=== PATIENT | female | born 1970 | race American Indian/Alaskan Native ===

== ENCOUNTER 2016-12-19 16:11 | Emergency (ER) | payer MEDICAID, OTHER ==
[2016-12-19 17:15] LABS: Basophils % (Auto) 1.1 % (0.0-1.8); Eosinophils % (Auto) 0.7 % (0.0-4.3); Hematocrit 45.1 % (30.3-42.9); Hemoglobin 14.2 gm/dl (10.1-14.3); Mean Corpuscular HGB Conc 32 % (30-34); Mean Corpuscular Hemoglobin 28 pg (28-32); Mean Corpuscular Volume 89 fl (79-97); Platelet Count 180 K/mm3 (140-440); Red Blood Count 5.06 M/mm3 (3.65-5.03); Red Cell Distribution Width 16.1 % (13.2-15.2); White Blood Count 4.2 K/mm3 (4.5-11.0)
[2016-12-19 17:28] LABS: Anion Gap 14 mmol/L; BUN/Creatinine Ratio 14.28; Blood Urea Nitrogen 10 mg/dL (7-17); Calcium 8.7 mg/dL (8.4-10.2); Carbon Dioxide 28 mmol/L (22-30); Chloride 101.7 mmol/L (98-107); Glucose 104 mg/dL (65-100); Potassium 3.7 mmol/L (3.6-5.0); Sodium 140 mmol/L (137-145)
[2016-12-19 19:07] LABS: Bacteria,Urine 1+ /HPF (Negative); Bilirubin,Urine NEG (Negative); Blood,Urine NEG (Negative); Ketones,Urine NEG (Negative); Leukocyte Esterase,Urine MOD (Negative); Mucus,Urine 1+ /HPF; Nitrite,Urine NEG (Negative); Protein,Urine <15 mg/dL mg/dL (Negative)
[2016-12-19] MEDS ORDERED: DILAUDID IV ONE (21:37)
[2016-12-19] MEDS ORDERED: NACL 0.9% 1000 ML 1,000 ML IV ONE (21:37)
--- NOTE | 2016-12-19 21:55 | Emergency Department Report ---
HPI - General Chief Complaint: Abdominal Pain Time Seen by Provider: 12/19/16 21:15 - HPI HPI: This is a 46-year-old Afro-[place] female presents to the emergency department with a 2 week history of right groin pain that she says is an exacerbation of her lupus. She says that this is normally where she gets lupus pains. She denies any pain or abnormalities to the genitalia. She denies any dysuria, vaginal bleeding or discharge. She went one week ago to self full the emergency department and was prescribed Percocet which she says she has been taking but has not helped with her symptoms. She also has a history of DVT and PE and is on warfarin which she says she takes compliantly. Her primary care physician is Dr. Letty Haddad. No recent travel or sick contacts at home. ED Past Medical Hx - Past Medical History Hx Diabetes: Yes (mother) Hx Deep Vein Thrombosis: Yes Hx Pulmonary Embolism: Yes Hx GERD: No Hx Headaches / Migraines: No Hx HIV: No Additional medical history: LUPUS. OBESITY - Surgical History Hx Open Heart Surgery: Yes (1998) Additional Surgical History: SURG FOR PE - Social History Smoking Status: Never Smoker Substance Use Type: Prescribed - Medications Home Medications: Home Medications Medication Instructions Recorded Confirmed Last Taken Type Warfarin [Coumadin] 5 mg PO QDAY #10 tablet 03/05/15 Unknown Rx Diphenhydramine HCl [Benadryl 50 mg PO Q6H #24 tablet 12/02/15 Unknown Rx Allergy TAB] HYDROcodone/APAP 5-325 [[place] 1 - 2 each PO Q6HR PRN #14 tablet 12/02/15 Unknown Rx 5/325] Prednisone [predniSONE 10 mg 10 mg PO .TAPER #1 tab.ds.pk 12/02/15 Unknown Rx (6-Day Pack, 21 Tabs)] traMADol [Ultram 50 MG tab] 50 mg PO Q6HR PRN #12 tablet 12/20/16 Unknown Rx ED Review of Systems ROS: Stated complaint: RT GROIN PAIN/LUPUS Other details as noted in HPI Comment: All other systems reviewed and negative Constitutional: denies: chills, fever Eyes: denies: eye pain, eye discharge, vision change ENT: denies: ear pain, throat pain Respiratory: denies: cough, shortness of breath, wheezing Cardiovascular: denies: chest pain, palpitations Gastrointestinal: denies: abdominal pain, nausea Genitourinary: denies: dysuria, hematuria Musculoskeletal: arthralgia, myalgia. denies: back pain Skin: denies: rash, lesions Neurological: denies: headache, weakness, paresthesias Physical Exam - Physical Exam Vital Signs: Vital Signs 12/19/16 16:47 Temperature 97.7 F Pulse Rate 108 H Respiratory 19 Rate Blood Pressure 148/101 O2 Sat by Pulse 99 Oximetry Physical Exam: GENERAL: The patient is well-developed well-nourished. HEENT: Normocephalic. Atraumatic. Extraocular motions are intact. Patient has moist mucous membranes. Pupils equal reactive to light bilaterally. NECK: Supple. Trachea is midline. CHEST/LUNGS: Clear to auscultation. There is no respiratory distress noted. HEART/CARDIOVASCULAR: Regular. There is no tachycardia. There is no gallop rub or murmur. ABDOMEN: Abdomen is soft, nontender. Patient has normal bowel sounds. There is no abdominal distention. SKIN: Skin is warm and dry. NEURO: The patient is awake, alert, and oriented. The patient is cooperative. The patient has no focal neurologic deficits. The patient has normal speech. MUSCULOSKELETAL: There is some reproducible tenderness palpation to the medial right upper thigh and towards the inguinal region. No palpable hernia. There is no limitation range of motion. There is no evidence of acute injury. ED Course Vital Signs 12/19/16 16:47 Temperature 97.7 F Pulse Rate 108 H Respiratory 19 Rate Blood Pressure 148/101 O2 Sat by Pulse 99 Oximetry ED Medical Decision Making - Lab Data Result diagrams: 12/19/16 16:56 12/19/16 16:56 - Medical Decision Making 46-year-old female presents with what she says is a lupus exacerbation with pain to the right upper groin/thigh. There is been no trauma. Labs are unremarkable. Her INR is therapeutic and therefore, along with a lack of swelling or discoloration, there is no concern for DVT. She was given multiple doses of pain medication and upon reevaluation she is improved and resting comfortably. Patient was able to get up and ambulate upon discharge and did not appear unstable at doing so. She will follow-up with her primary care doctor in the next few days and return to the ER with any worsening of her symptoms or any acute distress. - Differential Diagnosis Lupus, fibromyalgia, fracture, contusion, sprain Critical Care Time: No Critical care attestation.: If time is entered above; I have spent that time in minutes in the direct care of this critically ill patient, excluding procedure time. ED Disposition Clinical Impression: Right groin pain, Exacerbation of systemic lupus Joint pain Qualifiers: Joint pain location: unspecified Qualified Code(s): M25.50 - Pain in unspecified joint Disposition: DC- TO HOME OR SELFCARE Is pt being admited?: No Condition: Stable Instructions: Arthralgia (ED) Additional Instructions: Please follow-up with your primary care doctor in the next few days. Return to the emergency department with any worsening of your symptoms or any acute distress. You've been prescribed a medication that is sedating. Therefore this medication cannot be mixed with alcohol, or taken prior to driving, working, or being responsible for children. Prescriptions: traMADol [Ultram 50 MG tab] 50 mg PO Q6HR PRN #12 tablet PRN Reason: Pain Referrals: PRIMARY CARE,MD [Primary Care Provider] - [facility] Forms: Accompanied Note, Work/School Release Form(ED) Time of Disposition: 02:01
[2016-12-19 22:23] LABS: INR 2.62 (0.87-1.13)
[2016-12-19 22:24] LABS: Partial Thromboplastin Time 45.7 Sec. (24.2-36.6)
[2016-12-19] MEDS ORDERED: VALIUM IV ONE (23:15)
[2016-12-20 01:31] VITALS: BP 158/95
[2016-12-20] MEDS ORDERED: DILAUDID IV ONE (01:34)
== END 2016-12-20 02:40 | disposition home or self-care (01) ==
LOC: ED 16:11
DX: R10.30 Lower abdominal pain, unspecified (principal); M32.9 Systemic lupus erythematosus, unspecified; E11.9 Type 2 diabetes mellitus without complications; I82.409 Acute embolism and thrombosis of unspecified deep veins of unspecified lower extremity; E66.9 Obesity, unspecified; I26.99 Other pulmonary embolism without acute cor pulmonale; Z79.01 Long term (current) use of anticoagulants; Z88.8 Allergy status to other drugs, medicaments and biological substances; Z91.048 Other nonmedicinal substance allergy status
CPT/HCPCS: 36415; 80048; 81001; 84703; 85025; 85610; 85730; 96361; 96374; 96375; 96376; 99283; J1170; J3360; J7030

== ENCOUNTER 2016-12-23 14:10 | Emergency (ER) | payer OTHER ==
--- NOTE | 2016-12-23 15:28 | Emergency Department Report ---
Chief Complaint: Pain General Stated Complaint: GROIN PAIN,LUPUS Time Seen by Provider: 12/23/16 15:24 - HPI History of Present Illness: PT c/o R groin pain. PT states this is from her Lupus. PT states she was seen in ED 2 days ago and given Tramadol. PT has not followed up with PCP - ROS Review of Systems: + leg pain + decreased ROM due to leg pain - Exam Physical Exam: morbidly obese female pt evaluated while sitting in wheelchair due to her leg pain MSE screening note: Focused history and physical exam performed. Due to findings the following was ordered: labs ED Disposition for MSE Condition: Stable
[2016-12-23 16:22] LABS: Basophils % (Auto) 1.4 % (0.0-1.8); Eosinophils % (Auto) 1.1 % (0.0-4.3); Hematocrit 44.1 % (30.3-42.9); Hemoglobin 14.5 gm/dl (10.1-14.3); Mean Corpuscular HGB Conc 33 % (30-34); Mean Corpuscular Hemoglobin 30 pg (28-32); Mean Corpuscular Volume 90 fl (79-97); Platelet Count 182 K/mm3 (140-440); Red Blood Count 4.93 M/mm3 (3.65-5.03); Red Cell Distribution Width 15.7 % (13.2-15.2); White Blood Count 4.2 K/mm3 (4.5-11.0)
[2016-12-23 16:32] LABS: INR 1.95 (0.87-1.13)
[2016-12-23 16:33] LABS: Partial Thromboplastin Time 46.5 Sec. (24.2-36.6)
[2016-12-23 16:46] LABS: Alanine Aminotransferase 17 units/L (7-56); Albumin 3.8 g/dL (3.9-5); Albumin/Globulin Ratio 0.9 %; Alkaline Phosphatase 72 units/L (35-129); Anion Gap 15 mmol/L; BUN/Creatinine Ratio 18.57; Blood Urea Nitrogen 13 mg/dL (7-17); Calcium 8.9 mg/dL (8.4-10.2); Carbon Dioxide 26 mmol/L (22-30); Chloride 96.4 mmol/L (98-107); Glucose 85 mg/dL (65-100); Potassium 3.9 mmol/L (3.6-5.0); Sodium 133 mmol/L (137-145)
[2016-12-24] MEDS ORDERED: DILAUDID IV ONE ×2 (02:03→03:36)
--- NOTE | 2016-12-24 02:10 | Emergency Department Report ---
HPI - General Chief Complaint: Pain General Time Seen by Provider: 12/23/16 15:24 - HPI HPI: This is a 46-year-old Afro-[place] female presents to the emergency department with complaint of pain to the right groin and inside of the right thigh. The patient was seen here on 12/19/16 for the same complaints. She has a history of lupus and says that this is where she gets her lupus pain. Patient does have a history of DVT but is on Coumadin and says she has been compliant for her medication. Her primary care physician is Dr. Letty Haddad but she has not seen this physician between these 2 visits. She denies any dysuria, vaginal bleeding , vaginal discharge, chest pain, shortness of breath, nausea, vomiting or chest pain. No recent travel or sick contacts at home. ED Past Medical Hx - Past Medical History Previous Medical History?: Yes Hx Diabetes: Yes (mother) Hx Deep Vein Thrombosis: Yes Hx Pulmonary Embolism: Yes Hx GERD: No Hx Headaches / Migraines: No Hx HIV: No Additional medical history: LUPUS. OBESITY - Surgical History Past Surgical History?: Yes Hx Open Heart Surgery: Yes (1998) Additional Surgical History: SURG FOR PE - Social History Smoking Status: Never Smoker Substance Use Type: Prescribed - Medications Home Medications: Home Medications Medication Instructions Recorded Confirmed Last Taken Type Warfarin [Coumadin] 5 mg PO QDAY #10 tablet 03/05/15 Unknown Rx Diphenhydramine HCl [Benadryl 50 mg PO Q6H #24 tablet 12/02/15 Unknown Rx Allergy TAB] HYDROcodone/APAP 5-325 [[place] 1 - 2 each PO Q6HR PRN #14 tablet 12/02/15 Unknown Rx 5/325] Prednisone [predniSONE 10 mg 10 mg PO .TAPER #1 tab.ds.pk 12/02/15 Unknown Rx (6-Day Pack, 21 Tabs)] traMADol [Ultram 50 MG tab] 50 mg PO Q6HR PRN #12 tablet 12/20/16 Unknown Rx HYDROcodone/APAP 5-325 [[place] 1 each PO Q6HR PRN #12 tablet 12/24/16 Unknown Rx 5/325] ED Review of Systems ROS: Stated complaint: GROIN PAIN,LUPUS Other details as noted in HPI Comment: All other systems reviewed and negative Constitutional: denies: chills, fever Eyes: denies: eye pain, eye discharge, vision change ENT: denies: ear pain, throat pain Respiratory: denies: cough, shortness of breath, wheezing Cardiovascular: denies: chest pain, palpitations Gastrointestinal: denies: abdominal pain, nausea, diarrhea Genitourinary: denies: urgency, dysuria, discharge Musculoskeletal: arthralgia, myalgia Skin: denies: rash, lesions Neurological: denies: headache, weakness, paresthesias Physical Exam - Physical Exam Vital Signs: Vital Signs 12/23/16 12/24/16 12/24/16 15:24 00:20 01:47 Temperature 98.4 F 97.8 F Pulse Rate 100 H 106 H 103 H Respiratory 18 18 18 Rate Blood Pressure 147/103 Blood Pressure 191/133 154/109 [Right] O2 Sat by Pulse 98 100 100 Oximetry Physical Exam: GENERAL: The patient is well-developed well-nourished. HEENT: Normocephalic. Atraumatic. Extraocular motions are intact. Patient has moist mucous membranes. Pupils equal reactive to light bilaterally. NECK: Supple. Trachea is midline. CHEST/LUNGS: Clear to auscultation. There is no respiratory distress noted. HEART/CARDIOVASCULAR: Regular. There is no tachycardia. There is no gallop rub or murmur. ABDOMEN: Abdomen is soft, nontender. Patient has normal bowel sounds. There is no abdominal distention. SKIN: Skin is warm and dry. NEURO: The patient is awake, alert, and oriented. The patient is cooperative. The patient has no focal neurologic deficits. The patient has normal speech. MUSCULOSKELETAL: Unable to reproduce right thigh/groin pain to palpation but no deformity. There is no limitation range of motion but she appears to have some discomfort with internal and external rotation of the right lower extremity. There is no evidence of acute injury. Neurovascularly intact. ED Course Vital Signs 12/23/16 12/24/16 12/24/16 15:24 00:20 01:47 Temperature 98.4 F 97.8 F Pulse Rate 100 H 106 H 103 H Respiratory 18 18 18 Rate Blood Pressure 147/103 Blood Pressure 191/133 154/109 [Right] O2 Sat by Pulse 98 100 100 Oximetry ED Medical Decision Making - Lab Data Result diagrams: 12/23/16 16:07 12/23/16 16:07 - Medical Decision Making 46-year-old female presents to the emergency department with pain to the upper inner right thigh where she says that she has exacerbations of her lupus. She was here 4 days ago for similar symptoms. Labs are grossly unremarkable. INR is 1.95 which is almost therapeutic. There is no gross abnormality seen in the area of his discomfort including no swelling or skin color change. She was given a dose of pain medication with good relief of her discomfort. She will return later in the morning or today for outpatient imaging to have a venous Doppler to rule out DVT as a source of her discomfort. If positive she will be redirected to the emergency department. If negative she has been encouraged to follow-up with her PCP and/or ecg technician. Vital signs stable throughout her ED course. The patient was seen ambulatory in the emergency department prior to discharge. - Differential Diagnosis Lupus, muscle strain, muscle spasm, DVT, fibromyalgia Critical Care Time: No Critical care attestation.: If time is entered above; I have spent that time in minutes in the direct care of this critically ill patient, excluding procedure time. ED Disposition Clinical Impression: Right groin pain, Exacerbation of systemic lupus Hypertension Qualifiers: Hypertension type: essential hypertension Qualified Code(s): I10 - Essential ( primary) hypertension Disposition: DC-01 TO HOME OR SELFCARE Is pt being admited?: No Condition: Stable Instructions: Arthralgia (ED), Hypertension (ED) Additional Instructions: Please follow-up with a primary care physician and/or a ecg technician in the next few days. You also will need to return to the outpatient imaging portion of the hospital in the morning for a right lower extremity venous Doppler ultrasound to rule out a blood clot as the source of your discomfort. If positive, he will be redirected to the emergency department. If negative, continued to follow-up with your physicians. You've been prescribed a medication that is sedating. Therefore this medication cannot be mixed with alcohol, or taken prior to driving, working, or being responsible for children. Prescriptions: HYDROcodone/APAP 5-325 [[place] 5/325] 1 each PO Q6HR PRN #12 tablet PRN Reason: Pain Referrals: PRIMARY CARE, [Primary Care Provider] - [facility] Time of Disposition: 04:29
[2016-12-24 04:50] VITALS: BP 149/98
--- NOTE | 2016-12-24 07:33 | XRay Report ---
RIGHT FEMUR: History: Right leg pain. AP and lateral views of the femur demonstrate normal mineralization and contours for this patient's age. No destructive changes are noted and the adjacent soft tissues are normal. IMPRESSION: Normal right femur.
== END 2016-12-24 04:45 | disposition home or self-care (01) ==
LOC: ED 14:10
DX: M32.9 Systemic lupus erythematosus, unspecified (principal); I10 Essential (primary) hypertension; Z86.718 Personal history of other venous thrombosis and embolism; Z79.01 Long term (current) use of anticoagulants
CPT/HCPCS: 36415; 73552; 80053; 85025; 85610; 85730; 96374; 96376; 99284; J1170

== ENCOUNTER 2019-01-21 03:50 | Emergency (ER) | payer OTHER ==
[2019-01-21 04:00] VITALS: BP 105/75
[2019-01-21] MEDS ORDERED: BENADRYL PO ONE (05:35)
[2019-01-21] MEDS ORDERED: PERCOCET 5/325 PO ONE (05:35)
[2019-01-21] MEDS ORDERED: SOLU-Medrol IM ONE (05:35)
[2019-01-21] MEDS ORDERED: ZOFRAN ODT PO ONE (05:36)
[2019-01-21] MEDS ORDERED: PEPCID PO ONE (05:36)
--- NOTE | 2019-01-21 06:06 | Emergency Department Report ---
ED Allergic Reaction HPI - General Chief complaint: Allergic Reaction Stated complaint: ALLERGIC REACTION Time Seen by Provider: 01/21/19 05:25 Source: patient Mode of arrival: Wheelchair Limitations: No Limitations - History of Present Illness Initial Comments: Patient is a 21-avae-nwt-[place] female with a history of chronic SLE, DVT and PE on Coumadin, [id number] diabetes and chronic migraine headaches who presents to the ED with complaint of acute onset persistent bilateral hand swelling on the lower lip tightness after she started taking Bactrim DS for acute urinary tract infection that was recently diagnosed. Patient states that she took the first dose of Bactrim DS about 12 hours ago and about 7 hours ago she started having these symptoms. Patient denies shortness of breath, dysphagia, dysphonia, cough, nasal and sinus congestion, dizziness, headache, swollen lips or tongue, swollen eyes, nausea, vomiting, diarrhea, or abdominal pain, fever and chills. Patient states that she took Benadryl after arrival in the ED MD Complaint: allergic reaction, other (Bilateral hand swellings; diffuse body aches and pains) -: Sudden, hour(s) (7) Exposure: medication (Bactrim DS) Symptoms: itching, lip swelling (subjective), other (Bilateral hand swelling and pain). denies: facial swelling, difficulty swallowing, difficulty breathing, orolingual swelling, hoarseness, syncopy, dizziness, nausea, vomiting, abdominal pain Severity: moderate Treatment Prior to Arrival: benadryl Previous Allergy History: none - Related Data Previous Rx's Medication Instructions Recorded Last Taken Type Warfarin [Coumadin] 5 mg PO QDAY #10 tablet 03/05/15 Unknown Rx Diphenhydramine HCl [Benadryl 50 mg PO Q6H #24 tablet 12/02/15 Unknown Rx Allergy TAB] HYDROcodone/APAP 5-325 [[place] 1 - 2 each PO Q6HR PRN #14 tablet 12/02/15 Unknown Rx 5/325] Prednisone [predniSONE 10 mg 10 mg PO .TAPER #1 tab.ds.pk 12/02/15 Unknown Rx (6-Day Pack, 21 Tabs)] traMADol [Ultram 50 MG tab] 50 mg PO Q6HR PRN #12 tablet 12/20/16 Unknown Rx HYDROcodone/APAP 5-325 [[place] 1 each PO Q6HR PRN #12 tablet 12/24/16 Unknown Rx 5/325] Ciprofloxacin HCl [Ciprofloxacin 500 mg PO Q12HR #20 tab 01/21/19 Unknown Rx TAB] Prednisone [predniSONE 10 mg 10 mg PO .TAPER #1 tab.ds.pk 01/21/19 Unknown Rx (6-Day Pack, 21 Tabs)] diphenhydrAMINE [Benadryl CAP] 50 mg PO Q8HR PRN #30 capsule 01/21/19 Unknown Rx raNITIdine HCl [Zantac] 150 mg PO Q12H #30 tablet 01/21/19 Unknown Rx traMADol [Ultram] 50 mg PO Q6HR PRN #15 tablet 01/21/19 Unknown Rx Allergies Allergy/AdvReac Type Severity Reaction Status Date / Time allantoin [From Blistex] Allergy Swelling Verified 12/19/16 16:44 aloe vera extract Allergy Swelling Verified 12/19/16 16:44 [From Blistex] camphor [From Blistex] Allergy Swelling Verified 12/19/16 16:44 chamomile flower Allergy Swelling Verified 12/19/16 16:44 [From Blistex] dimethicone [From Blistex] Allergy Swelling Verified 12/19/16 16:44 herbal complex no. 57 Allergy Swelling Verified 12/19/16 16:44 [From Blistex] homosalate [From Blistex] Allergy Swelling Verified 12/19/16 16:44 menthol [From Blistex] Allergy Swelling Verified 12/19/16 16:44 meradimate [From Blistex] Allergy Swelling Verified 12/19/16 16:44 octinoxate [From Blistex] Allergy Swelling Verified 12/19/16 16:44 octyl salicylate Allergy Swelling Verified 12/19/16 16:44 [From Blistex] oxybenzone [From Blistex] Allergy Swelling Verified 12/19/16 16:44 padimate O [From Blistex] Allergy Swelling Verified 12/19/16 16:44 Penicillins Allergy Swelling Verified 12/19/16 16:44 petrolatum,hydrophilic Allergy Swelling Verified 12/19/16 16:44 [From Blistex] phenol [From Blistex] Allergy Swelling Verified 12/19/16 16:44 gabapentin AdvReac Swelling Verified 12/19/16 16:44 ED Review of Systems ROS: Stated complaint: ALLERGIC REACTION Other details as noted in HPI Constitutional: denies: chills, fever Eyes: denies: eye pain, eye discharge, vision change ENT: other (lower lip tightness). denies: ear pain, throat pain, hearing loss, epistaxis, congestion Respiratory: denies: cough, shortness of breath, wheezing Cardiovascular: denies: chest pain, palpitations Endocrine: no symptoms reported Gastrointestinal: denies: abdominal pain, nausea, vomiting, diarrhea, hematemesis, melena Genitourinary: denies: urgency, dysuria, discharge Musculoskeletal: back pain, joint swelling (bilateral hand swelling and pain), arthralgia, myalgia Skin: pruritus. denies: lesions, change in color, change in hair/nails Neurological: denies: headache, weakness, paresthesias Psychiatric: denies: anxiety, depression Hematological/Lymphatic: denies: easy bleeding, easy bruising ED Past Medical Hx - Past Medical History Previous Medical History?: Yes Hx Diabetes: Yes (mother) Hx Deep Vein Thrombosis: Yes Hx Pulmonary Embolism: Yes Hx GERD: No Hx Headaches / Migraines: No Hx HIV: No Additional medical history: LUPUS. OBESITY - Surgical History Past Surgical History?: Yes Hx Open Heart Surgery: Yes (1998) Additional Surgical History: SURG FOR PE - Social History Smoking Status: Never Smoker Substance Use Type: None - Medications Home Medications: Home Medications Medication Instructions Recorded Confirmed Last Taken Type Warfarin [Coumadin] 5 mg PO QDAY #10 tablet 03/05/15 Unknown Rx Diphenhydramine HCl [Benadryl 50 mg PO Q6H #24 tablet 12/02/15 Unknown Rx Allergy TAB] HYDROcodone/APAP 5-325 [[place] 1 - 2 each PO Q6HR PRN #14 tablet 12/02/15 Unknown Rx 5/325] Prednisone [predniSONE 10 mg 10 mg PO .TAPER #1 tab.ds.pk 12/02/15 Unknown Rx (6-Day Pack, 21 Tabs)] traMADol [Ultram 50 MG tab] 50 mg PO Q6HR PRN #12 tablet 12/20/16 Unknown Rx HYDROcodone/APAP 5-325 [[place] 1 each PO Q6HR PRN #12 tablet 12/24/16 Unknown Rx 5/325] Ciprofloxacin HCl [Ciprofloxacin 500 mg PO Q12HR #20 tab 01/21/19 Unknown Rx TAB] Prednisone [predniSONE 10 mg 10 mg PO .TAPER #1 tab.ds.pk 01/21/19 Unknown Rx (6-Day Pack, 21 Tabs)] diphenhydrAMINE [Benadryl CAP] 50 mg PO Q8HR PRN #30 capsule 01/21/19 Unknown Rx raNITIdine HCl [Zantac] 150 mg PO Q12H #30 tablet 01/21/19 Unknown Rx traMADol [Ultram] 50 mg PO Q6HR PRN #15 tablet 01/21/19 Unknown Rx ED Physical Exam - General Limitations: No Limitations General appearance: alert, in no apparent distress - Head Head exam: Present: atraumatic, normocephalic, normal inspection - Eye Eye exam: Present: normal appearance, PERRL, EOMI. Absent: scleral icterus, conjunctival injection, nystagmus, periorbital swelling, periorbital tenderness, other Pupils: Present: normal accommodation - ENT ENT exam: Present: normal exam, normal orophraynx, mucous membranes moist, TM's normal bilaterally, normal external ear exam - Neck Neck exam: Present: normal inspection, full ROM. Absent: tenderness, meningismus, lymphadenopathy, thyromegaly - Respiratory Respiratory exam: Present: normal lung sounds bilaterally. Absent: respiratory distress, wheezes, rales, rhonchi, chest wall tenderness, accessory muscle use, decreased breath sounds, prolonged expiratory - Cardiovascular Cardiovascular Exam: Present: regular rate, normal rhythm, normal heart sounds. Absent: systolic murmur, diastolic murmur, rubs, gallop - GI/Abdominal GI/Abdominal exam: Present: soft, normal bowel sounds. Absent: distended, tenderness, rebound, hyperactive bowel sounds - Rectal Rectal exam: Present: deferred - Extremities Exam Extremities exam: Present: normal inspection, full ROM, tenderness (diffuse joint tenderness), normal capillary refill, joint swelling (bilateral hand swelling and pain). Absent: pedal edema - Back Exam Back exam: Present: normal inspection, tenderness (Palpable paraspinal lumbosacral musculoskeletal tenderness), muscle spasm, paraspinal tenderness - Neurological Exam Neurological exam: Present: alert, oriented X3, CN II-XII intact, normal gait, reflexes normal - Psychiatric Psychiatric exam: Present: normal affect, normal mood - Skin Skin exam: Present: warm, dry, intact, normal color. Absent: rash ED Course Vital Signs 08/15/19 08/15/19 03:53 06:29 Temperature 99.5 F Pulse Rate 105 H Respiratory 18 16 Rate Blood Pressure 105/75 O2 Sat by Pulse 98 Oximetry - Reevaluation(s) Reevaluation #1: 01/21/19 07:01 This is a 48-year-old female who presented to the ED with complaint of acute onset of persistent bilateral hand swelling and joint pains after taking Bactrim DS for acute urinary tract infection. In the ED, patient is alert and oriented 3 and is not in distress, but tachycardic and anxious. Patient was treated in the ED for acute allergic reaction and also given pain medications for her joint pains. On reevaluation, patient's pain is well-controlled with medications, tachycardia also resolved. Patient was discharged home on pain medications, prednisone Dosepak, Zantac, ciprofloxacin for UTI, and Benadryl prescription and advised to follow-up with her primary care physician in 3-5 days for reevaluation. Patient was advised to return to the ED immediately if symptoms get worse. ED Medical Decision Making - Medical Decision Making This is a 48-year-old female who presented to the ED with complaint of acute onset of persistent bilateral hand swelling and joint pains after taking Bactrim DS for acute urinary tract infection. In the ED, patient is alert and oriented 3 and is not in distress, but tachycardic and anxious. Patient was treated in the ED for acute allergic reaction and also given pain medications for her joint pains. On reevaluation, patient's pain is well-controlled with medications, tachycardia also resolved. Patient was discharged home on pain medications, prednisone Dosepak, Zantac, ciprofloxacin for UTI, and Benadryl prescription and advised to follow-up with her primary care physician in 3-5 days for reevaluation. Patient was advised to return to the ED immediately if symptoms get worse. - Differential Diagnosis acute allergic reaction; acute Urticaria; Bilateral hand swelling, UTI Critical care attestation.: If time is entered above; I have spent that time in minutes in the direct care of this critically ill patient, excluding procedure time. ED Disposition Clinical Impression: Bilateral hand swelling, Acute urticaria, Acute UTI (urinary tract infection) Acute allergic reaction Qualifiers: Encounter type: initial encounter Qualified Code(s): T78.40XA - Allergy, unspecified, initial encounter Disposition: - TO HOME OR SELFCARE Is pt being admited?: No Does the pt Need Aspirin: No Condition: Stable Instructions: Urticaria (ED), Allergies (ED) Additional Instructions: Take medications with food, drink plenty of fluids and follow-up with your primary care physician in 7-10 days for reevaluation. Return to the ED immediately if symptoms get worse. Prescriptions: diphenhydrAMINE [Benadryl CAP] 50 mg PO Q8HR PRN #30 capsule PRN Reason: Itching Ciprofloxacin HCl [Ciprofloxacin TAB] 500 mg PO Q12HR #20 tab Prednisone [predniSONE 10 mg (6-Day Pack, 21 Tabs)] 10 mg PO .TAPER #1 tab.ds.pk traMADol [Ultram] 50 mg PO Q6HR PRN #15 tablet PRN Reason: Pain raNITIdine HCl [Zantac] 150 mg PO Q12H #30 tablet Referrals: MARII TAMAYO MD [Primary Care Provider] - 3-5 Days Time of Disposition: 06:13 Print Language: MONGOLIAN
== END 2019-01-21 07:07 | disposition home or self-care (01) ==
LOC: ED 03:50
DX: T78.40XA Allergy, unspecified, initial encounter (principal); L50.9 Urticaria, unspecified; N39.0 Urinary tract infection, site not specified; E11.9 Type 2 diabetes mellitus without complications; Y92.89 Other specified places as the place of occurrence of the external cause
CPT/HCPCS: 96372; 99282; J2930; Q0162